=== PATIENT | female | born 1990 | race Caucasian/White ===

== ENCOUNTER 2020-07-29 09:42 | Emergency (ER) | payer OTHER ==
[~2020-07-29] VITALS: Ht 175.3 cm; Wt 58.0 kg
[2020-07-29 10:10] VITALS: BP 139/80
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
[2020-07-29] MEDS ORDERED: METOCLOPRAMIDE HCL 10 MG/2 ML VIAL. IVP ONE (10:15)
[2020-07-29] MEDS ORDERED: IV DEXTROSE 5 %-0.45 % NACL 500 ML IV ONE (10:15)
[2020-07-29] MEDS ORDERED: PYRIDOXINE 100 MG/ML VIAL. IV ONE (10:15)
[2020-07-29 10:55] LABS: BASO % 0 % (0-3); EOS % 0 % (0-3); HEMATOCRIT 36.9 % (36.0-47.0); HEMOGLOBIN 12.5 g/dL (12.0-15.5); LYMPH # 1.4 x10^3/uL (1.0-4.8); LYMPH % 17 % (24-48); MEAN CORPUSCULAR HEMOGLOBIN 33 pg (25-35); MEAN CORPUSCULAR HGB CONC 34 g/dL (31-37); MEAN CORPUSCULAR VOLUME 99 fL (79-100); MONO # 0.5 x10^3/uL (0.0-1.1); MONO % 6 % (0-9); NEUT # 6.7 x10^3uL (1.8-7.7); NEUT % 77 % (31-73); PLATELET COUNT 212 x10^3/uL (140-400); RED BLOOD COUNT 3.75 x10^6/uL (3.50-5.40); RED CELL DISTRIBUTION WIDTH 12.5 % (11.5-14.5); WHITE BLOOD COUNT 8.7 x10^3/uL (4.0-11.0)
[2020-07-29 11:03] LABS: CALCIUM 9.6 mg/dL (8.5-10.1); CREATININE 0.5 mg/dL (0.6-1.0); GFR 144.9; POTASSIUM 3.8 mmol/L (3.5-5.1)
[2020-07-29 11:07] LABS: BACTERIA,URINE FEW /HPF (0-FEW); BILIRUBIN,URINE SMALL (NEG); CLARITY,URINE TURBID; COLOR,URINE AMBER; GLUCOSE,URINE NEG (NEG); NITRITE,URINE NEG (NEG); SQUAMOUS EPITHELIAL CELL,UR MANY /LPF
[2020-07-29 11:09] LABS: ALBUMIN 4.2 g/dL (3.4-5.0); DIRECT BILIRUBIN 0.2 mg/dL (0.0-0.2); TOTAL BILIRUBIN 0.8 mg/dL (0.2-1.0)
[2020-07-29] MEDS ORDERED: IV NORMAL SALINE 1,000ML 1,000 ML IV ONE (11:45)
[2020-07-29] MEDS ORDERED: ONDA4TAB12 PO (12:41)
[2020-07-29] MEDS ORDERED: DOXY1TAB8 PO (12:41)
== END 2020-07-29 12:20 | disposition home or self-care (01) ==
LOC: ER 09:42
DX: O21.9 Vomiting of pregnancy, unspecified (principal); R82.4 Acetonuria; F32.9 Major depressive disorder, single episode, unspecified; F41.9 Anxiety disorder, unspecified; Z3A.22 22 weeks gestation of pregnancy
CPT/HCPCS: 36415; 80048; 80076; 81001; 83690; 84702; 85025; 96372; 96374; 96375; 99284; J2765; J3415

== ENCOUNTER 2020-08-28 13:12 | Emergency (ER) | payer OTHER ==
[~2020-08-28] VITALS: Ht 175.3 cm; Wt 63.0 kg
[~2020-08-28 13:12] MED LIST: DOXY1TAB8 PO; ONDA4TAB12 PO
[2020-08-28 13:20] VITALS: BP 113/80
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
[2020-08-28] MEDS ORDERED: ONDANSETRON PF 4 MG/2 ML VIAL. IVP ONE (13:45)
[2020-08-28] MEDS ORDERED: IV NORMAL SALINE 1,000ML 1,000 ML IV ONE (13:45)
[2020-08-28] MEDS ORDERED: FAMOTIDINE 20 MG/2 ML VIAL IVP ONE (13:45)
[2020-08-28 13:57] LABS: BASO % 0 % (0-3); EOS # 0.1 x10^3/uL (0.0-0.7); EOS % 2 % (0-3); HEMATOCRIT 33.6 % (36.0-47.0); HEMOGLOBIN 11.4 g/dL (12.0-15.5); LYMPH # 1.5 x10^3/uL (1.0-4.8); LYMPH % 19 % (24-48); MEAN CORPUSCULAR HEMOGLOBIN 34 pg (25-35); MEAN CORPUSCULAR HGB CONC 34 g/dL (31-37); MEAN CORPUSCULAR VOLUME 99 fL (79-100); MONO # 0.6 x10^3/uL (0.0-1.1); MONO % 8 % (0-9); NEUT # 5.5 x10^3uL (1.8-7.7); NEUT % 72 % (31-73); PLATELET COUNT 197 x10^3/uL (140-400); RED CELL DISTRIBUTION WIDTH 13.1 % (11.5-14.5); WHITE BLOOD COUNT 7.6 x10^3/uL (4.0-11.0)
[2020-08-28 14:06] LABS: BACTERIA,URINE MOD /HPF (0-FEW); BILIRUBIN,URINE NEG (NEG); CLARITY,URINE HAZY; COLOR,URINE YELLOW; GLUCOSE,URINE NEG (NEG); NITRITE,URINE NEG (NEG); SQUAMOUS EPITHELIAL CELL,UR MANY /LPF
[2020-08-28 14:08] LABS: CALCIUM 8.7 mg/dL (8.5-10.1); CREATININE 0.5 mg/dL (0.6-1.0); GFR 144.9; POTASSIUM 3.8 mmol/L (3.5-5.1)
[2020-08-28 14:14] LABS: ALBUMIN 3.4 g/dL (3.4-5.0); MAGNESIUM 1.8 mg/dL (1.8-2.4); TOTAL BILIRUBIN 0.4 mg/dL (0.2-1.0); TOTAL PROTEIN 6.9 g/dL (6.4-8.2)
[2020-08-28] MEDS ORDERED: SENN-121 PO (14:58)
[2020-08-28] MEDS ORDERED: ONDA4TAB12 PO (14:58)
[2020-08-28] MEDS ORDERED: FAMO-63 PO (14:58)
== END 2020-08-28 15:05 | disposition home or self-care (01) ==
LOC: ER 13:12
DX: O26.892 Other specified pregnancy related conditions, second trimester (principal); K92.0 Hematemesis; K92.1 Melena; O99.342 Other mental disorders complicating pregnancy, second trimester; F43.10 Post-traumatic stress disorder, unspecified; Z3A.18 18 weeks gestation of pregnancy
CPT/HCPCS: 36415; 80053; 81001; 83690; 83735; 85025; 87086; 96361; 96374; 96375; 99284; J2405; J3490; J7030